=== PATIENT | male | born 1945 | race Hispanic/Latino ===

== ENCOUNTER 2020-05-29 17:07 | Emergency (ER) | payer MEDICARE ==
--- NOTE | 2020-05-29 18:13 | Event Note ---
ED Screening Note ED Screening Note: COVID + two weeks ago generalized weakness no appetite states he has lost 7 lbs no cough states has difficulty with inspiration no CP no vomiting +diarrhea PMHx undetectable HIV, afib, HLD pt is on eliquis and sotalol This initial assessment/diagnostic orders/clinical plan/treatment(s) is/are subject to change based on patients health status, clinical progression and re- assessment by fellow clinical providers in the ED. Further treatment and workup at subsequent clinical providers discretion. Patient/guardian urged not to elope from the ED as their condition may be serious if not clinically assessed and managed. Initial orders include: labs, CXR, EKG
--- NOTE | 2020-05-29 18:46 | XRay Report ---
CHEST 2 VIEWS INDICATION / CLINICAL INFORMATION: Weakness and shortness of breath. Nausea. COVID-19 positive. COMPARISON: None available. FINDINGS: SUPPORT DEVICES: None. HEART / MEDIASTINUM: The heart size and pulmonary vasculature are normal. LUNGS / PLEURA: There are [id number] patchy areas of peripheral parenchymal opacity in the righ t lung, most prominent in the mid to lower lung. There are milder patchy areas of peripheral parenchy mal opacity in the left lower lung. No pleural effusion. No pneumothorax. ADDITIONAL FINDINGS: No significant additional findings. IMPRESSION: Patchy parenchymal opacities in the periphery of both lungs, right greater than left. Aty pical causes of pneumonia, including viral pneumonia, should be considered. Signer Name: Leonid Aranda MD Signed: 05/29/2020 6:41 PM Workstation Name: [id number]
[2020-05-29 19:27] LABS: Basophils % (Auto) 0.2 % (0.0-1.8); Eosinophils % (Auto) 0.4 % (0.0-4.3); Hematocrit 50.1 % (35.5-45.6); Hemoglobin 17.3 gm/dl (11.8-15.2); Lymphocytes # (Auto) 1.1 K/mm3 (1.2-5.4); Lymphocytes % (Auto) 21.2 % (13.4-35.0); Mean Corpuscular HGB Conc 35 % (32-34); Mean Corpuscular Volume 99 fl (84-94); Monocytes # (Auto) 0.6 K/mm3 (0.0-0.8); Monocytes % (Auto) 12.8 % (0.0-7.3); Platelet Count 202 K/mm3 (140-440); Red Blood Count 5.06 M/mm3 (3.65-5.03); Red Cell Distribution Width 12.7 % (13.2-15.2)
[2020-05-29 19:32] LABS: Alanine Aminotransferase 9 units/L (7-56); Albumin 3.9 g/dL (3.9-5); BUN/Creatinine Ratio 12; Blood Urea Nitrogen 11 mg/dL (9-20); Calcium 8.6 mg/dL (8.4-10.2); Hemolysis Index 14
[2020-05-29 20:11] VITALS: BP 141/72
[2020-05-29] MEDS ORDERED: SODIUM CHLORIDE 0.9% 1000 ML 1,000 ML IV ONE ×2 (20:33)
--- NOTE | 2020-05-29 20:52 | Emergency Department Report ---
HPI - General Chief Complaint: Weakness PUI?: Yes Time Seen by Provider: 05/29/20 18:10 - HPI HPI: Room 34 The patient is a 75-year-old male present with a chief complaint of weakness. The patient states he was diagnosed with Covid approximately 2 weeks ago after developing symptoms of cough nausea vomiting diarrhea. The patient states he has been suffering from early satiety partly due to his loss of sense of taste subsequently has not been eating a lot of food. Patient states he has been trying to drink liquids. Patient denies fever pain or shortness of breath. The patient states he woke up today feeling extremely weak and called his primary physician. Primary physician advised patient to come to the ED for evaluation. The patient states today he developed a little bit of dysuria with initiation of his urinary stream. ED Past Medical Hx - Past Medical History Previous Medical History?: Yes Hx of Cancer: Yes (Prostate CA) Hx HIV: Yes (Last CD4 count 900s winter 2019) Additional medical history: Afib - Surgical History Past Surgical History?: No Additional Surgical History: knee replacement, seed implants for prostate cancer - Family History Family history: no significant - Social History Smoking Status: Former Smoker (None since 1988) Substance Use Type: None (Denies illicit drug use) - Medications Home Medications: Home Medications Medication Instructions Recorded Confirmed Last Taken Type Albuterol Mdi (or & Nicu Only) 2 puff IH QID PRN #8.5 gram 05/29/20 Unknown Rx [ProAir HFA Inhaler] Azithromycin [Zithromax Z-NATALIA] 0 mg PO DAILY #6 tab 05/29/20 Unknown Rx Ondansetron [Zofran ODT TAB] 8 mg PO Q8HR #20 tab.rapdis 05/29/20 Unknown Rx Prednisone [predniSONE 10 mg 10 mg PO .TAPER #1 tab.ds.pk 05/29/20 Unknown Rx (6-Day Pack, 21 Tabs)] ED Review of Systems ROS: Stated complaint: PCP REFERRAL Other details as noted in HPI Constitutional: malaise. denies: fever Eyes: denies: eye pain ENT: denies: throat pain Respiratory: cough. denies: shortness of breath Cardiovascular: denies: chest pain Endocrine: no symptoms reported Gastrointestinal: nausea, vomiting, diarrhea. denies: abdominal pain Genitourinary: dysuria Musculoskeletal: denies: back pain Neurological: denies: headache Physical Exam - Physical Exam Vital Signs: Vital Signs 05/29/20 05/29/20 17:10 19:57 Temperature 98.0 F 98.0 F Pulse Rate 80 74 Respiratory 18 18 Rate Blood Pressure 122/75 Blood Pressure 141/72 [Left] O2 Sat by Pulse 97 96 Oximetry Physical Exam: GENERAL: The patient is well-developed well-nourished male lying on stretcher not appearing to be in acute distress. [] HEENT: Normocephalic. Atraumatic. Extraocular motions are intact. Patient has moist mucous membranes. NECK: Supple. Trachea midline CHEST/LUNGS: Clear to auscultation. There is no respiratory distress noted. HEART/CARDIOVASCULAR: Regular. There is no tachycardia. There is no gallop rub or murmur. ABDOMEN: Abdomen is soft, nontender. Patient has normal bowel sounds. There is no abdominal distention. SKIN: There is no rash. There is no edema. There is no diaphoresis. NEURO: The patient is awake, alert, and oriented. The patient is cooperative. The patient has no focal neurologic deficits. The patient has normal speech MUSCULOSKELETAL: There is no evidence of acute injury. ED Course Vital Signs 05/29/20 05/29/20 17:10 19:57 Temperature 98.0 F 98.0 F Pulse Rate 80 74 Respiratory 18 18 Rate Blood Pressure 122/75 Blood Pressure 141/72 [Left] O2 Sat by Pulse 97 96 Oximetry ED Medical Decision Making - Lab Data Result diagrams: 05/29/20 18:33 05/29/20 18:33 Laboratory Tests 05/29/20 05/29/20 05/29/20 18:33 18:33 Unknown WBC 5.0 RBC 5.06 H Hgb 17.3 H Hct 50.1 H MCV 99 H MCH 34 H MCHC 35 H RDW 12.7 L Plt Count 202 Lymph % (Auto) 21.2 [place] % (Auto) 12.8 H Eos % (Auto) 0.4 Baso % (Auto) 0.2 Lymph # (Auto) 1.1 L [place] # (Auto) 0.6 Eos # (Auto) 0.0 Baso # (Auto) 0.0 Seg Neutrophils % 65.4 Seg Neutrophils # 3.2 Sodium 132 L Potassium 4.7 Chloride 94.3 L Carbon Dioxide 24 Anion Gap 18 BUN 11 Creatinine 0.9 Estimated GFR > 60 BUN/Creatinine Ratio 12 Glucose 102 H Calcium 8.6 Total Bilirubin 0.70 AST 14 ALT 9 Alkaline Phosphatase 85 Troponin T < 0.010 NT-Pro-B Natriuret Pep 97.47 Total Protein 6.7 Albumin 3.9 Albumin/Globulin Ratio 1.4 Urine Color Yellow Urine Turbidity Clear Urine pH 5.0 Ur Specific Arnett 1.019 Urine Protein 100 mg/dl Urine Glucose (UA) Neg Urine Ketones Neg Urine Blood Neg Urine Nitrite Neg Urine Bilirubin Neg Urine Urobilinogen < 2.0 Ur Leukocyte Esterase Neg Urine WBC (Auto) 1.0 Urine RBC (Auto) 1.0 U Epithel Cells (Auto) < 1.0 Urine Mucus Few - Radiology Data Radiology results: report reviewed (Chest x-ray), image reviewed (Chest x-ray) interpreted by me: Chest [id number] patchy infiltrates consistent with Covid pneumonia. No pneumothorax. No foreign body seen [facility] [address] [place] [address] XRay Report Signed Patient: CED SANTOYO MR#: [id number] [birth year] : 1945 Acct:[id number] Age/Sex: 75 / M ADM Date: 05/29/20 Loc: ED Attending Dr: Ordering Physician: DAMON GARCIA Date of Service: 05/29/20 Procedure(s): XR chest routine 2V Accession Number(s): [id number] cc: DAMON GARCIA Fluoro Time In Minutes: CHEST 2 VIEWS INDICATION / CLINICAL INFORMATION: Weakness and shortness of breath. Nausea. COVID-19 positive. COMPARISON: None available. FINDINGS: SUPPORT DEVICES: None. HEART / MEDIASTINUM: The heart size and pulmonary vasculature are normal. LUNGS / PLEURA: There are [id number] patchy areas of peripheral parenchymal opacity in the right lung, most prominent in the mid to lower lung. There are milder patchy areas of peripheral parenchymal opacity in the left lower lung. No pleural effusion. No pneumothorax. ADDITIONAL FINDINGS: No significant additional findings. IMPRESSION: Patchy parenchymal opacities in the periphery of both lungs, right greater than left. Atypical causes of pneumonia, including viral pneumonia, should be considered. Signer Name: Leonid Aranda MD Signed: 05/29/2020 6:41 PM Workstation Name: [id number] Transcribed By: RT Dictated By: Leonid Aranda MD Electronically Authenticated By: Leonid Aranda MD Signed Date/Time: 05/29/201840 DD/ 39 TD/TT: - Medical Decision Making 2-minute walking pulse ox never dropped below 92% on room air. - Differential Diagnosis Covid pneumonia, dehydration, fatigue, UTI Critical care attestation.: If time is entered above; I have spent that time in minutes in the direct care of this critically ill patient, excluding procedure time. ED Disposition Clinical Impression: Pneumonia due to COVID-19 virus Disposition: DC- TO HOME OR SELFCARE Is pt being admited?: No Does the pt Need Aspirin: No Condition: Stable Instructions: Bacterial Pneumonia (ED), COVID-19 Frequently Asked Questions Additional Instructions: Return to the emergency department should you develop worsening symptoms, inability to tolerate food or liquids, high fever or any other concerns Prescriptions: Prednisone [predniSONE 10 mg (6-Day Pack, 21 Tabs)] 10 mg PO .TAPER #1 tab.ds.pk Albuterol Mdi (or & Nicu Only) [ProAir HFA Inhaler] 2 puff IH QID PRN #8.5 gram PRN Reason: Shortness Of Breath Azithromycin [Zithromax Z-NATALIA] 0 mg PO DAILY #6 tab Ondansetron [Zofran ODT TAB] 8 mg PO Q8HR #20 tab.rapdis Referrals: LASHANDA CANALES [Other] - 3-5 Days Time of Disposition: 22:55
[2020-05-29 21:39] LABS: Bilirubin,Urine NEG (Negative); Blood,Urine NEG (Negative); Color,Urine Yellow (Yellow); Mucus,Urine FEW /HPF; Urobilinogen,Urine < 2.0 mg/dL (<2.0)
[2020-05-29] MEDS ORDERED: ONDANSETRON 4 MG/2 ML INJ IV ONE (21:41)
[2020-05-29] MEDS ORDERED: ETOMIDATE 20 MG/10 ML INJ IV ONE (21:43)
[2020-05-29] MEDS ORDERED: ROCURONIUM 50 MG/5 ML INJ IV ONE (21:47)
== END 2020-05-29 23:46 | disposition home or self-care (01) ==
LOC: ED 17:07
DX: U07.1 COVID-19 (principal); J12.82 Pneumonia due to coronavirus disease 2019; Z98.890 Other specified postprocedural states; Z21 Asymptomatic human immunodeficiency virus [HIV] infection status; Z87.891 Personal history of nicotine dependence; Z88.8 Allergy status to other drugs, medicaments and biological substances
CPT/HCPCS: 36415; 71046; 80053; 81001; 83880; 84484; 85025; 93005; 96361; 96374; 99284; J2405; J7030

== ENCOUNTER 2020-08-26 05:52 | Observation (INO) | payer MEDICARE ==
[2020-08-26] MEDS ORDERED: SODIUM CHLORIDE 0.9% 1000 ML 1,000 ML IV ONE ×2 (07:38→12:31)
[2020-08-26] MEDS ORDERED: ONDANSETRON 4 MG/2 ML INJ IV ONE (07:38)
[2020-08-26] MEDS ORDERED: MORPHINE 4 MG/1 ML INJ IV ONE (07:38)
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
[2020-08-26 10:07] LABS: Basophils % (Auto) 0.1 % (0.0-1.8); Eosinophils # (Auto) 0.1 K/mm3 (0.0-0.4); Eosinophils % (Auto) 0.7 % (0.0-4.3); Hematocrit 43.5 % (35.5-45.6); Lymphocytes # (Auto) 1.9 K/mm3 (1.2-5.4); Lymphocytes % (Auto) 22.2 % (13.4-35.0); Mean Corpuscular HGB Conc 34 % (32-34); Mean Corpuscular Volume 101 fl (84-94); Monocytes # (Auto) 0.7 K/mm3 (0.0-0.8); Monocytes % (Auto) 8.1 % (0.0-7.3); Platelet Count 220 K/mm3 (140-440); Red Blood Count 4.31 M/mm3 (3.65-5.03); Red Cell Distribution Width 12.9 % (13.2-15.2)
[2020-08-26 10:26] LABS: Alanine Aminotransferase 11 units/L (7-56); Albumin 3.7 g/dL (3.9-5); BUN/Creatinine Ratio 14; Blood Urea Nitrogen 11 mg/dL (9-20); Calcium 8.5 mg/dL (8.4-10.2); Hemolysis Index 1
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
[2020-08-26] MEDS ORDERED: ACETAMINOPHEN 500 MG TAB PO ONE (11:50)
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
--- NOTE | 2020-08-26 11:54 | Cat Scan Report ---
CTA CHEST WITH IV CONTRAST INDICATION: tachycardia, hx of COVID 19 infection. TECHNIQUE: Axial CT images were obtained through the chest after injection of 100 cc Omnipaque 350 IV contrast. 3 plane MIP reconstructions were produced. All CT scans at this location are performed using CT dose reduction for ALARA by means of automated exposure control. COMPARISON: None available. FINDINGS: Pulmonary Arteries: No pulmonary emboli. Lungs: There are patchy foci of groundglass opacity in both lungs, greatest in the left upper lobe Trachea and Bronchi: No significant abnormality. Heart and Pericardium: Moderately extensive coronary artherosclerotic calcifications Vasculature: No significant abnormality. Lymphatics: No lymphadenopathy. Additional Findings: None. Upper Abdomen: No acute findings. Skeletal Structures: No acute findings or aggressive bone lesions. IMPRESSION: 1. No CT evidence for pulmonary embolism. 2. Mild patchy ground glass opacities in both lungs that may indicate viral pneumonia. Signer Name: Thomas Conway MD Signed: 08/26/2020 11:50 AM Workstation Name: [id number]
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
[2020-08-26] MEDS ORDERED: dilTIAZem 25 MG/5 ML INJ IV ONE ×2 (12:32→13:20)
[2020-08-26] MEDS: METOPROLOL TARTRATE 5 MG/5 ML INJ IV SCH ×3 (14:02→14:41)
[2020-08-26] MEDS ORDERED: AMIODARONE 150 MG in DEXTROSE 5% IN WATER 97 ML IV ONE (14:51)
[2020-08-26] MEDS: AMIODARONE 900 MG in DEXTROSE 5% IN WATER 482 ML IV SCH (16:09)
[2020-08-26] MEDS ORDERED: METOCLOPRAMIDE 10 MG/2 ML INJ IV PRN (23:04)
[2020-08-26] MEDS ORDERED: ONDANSETRON 4 MG/2 ML INJ IV PRN (23:04)
[2020-08-26] MEDS ORDERED: ACETAMINOPHEN 325 MG TAB PO PRN (23:04)
[2020-08-26] MEDS ORDERED: NON-FORMULARY EACH (Apixaban 2.5 MG Tablet) PO SCH (23:15)
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
[2020-08-26] MEDS: FAMOTIDINE 20 MG/2 ML INJ IV SCH (23:36)
[2020-08-26] MEDS: HYDROmorphone 1 MG/1 ML INJ IV PRN (23:37)
[2020-08-26] MEDS ORDERED: SERTRALINE 50 MG TAB PO SCH (23:45)
[2020-08-26] MEDS ORDERED: HEPARIN 5,000 UNIT/1 ML VIAL SUB-Q SCH (23:45)
[2020-08-27] MEDS: SODIUM CHLORIDE 0.9% 1000 ML 1,000 ML IV SCH ×2 (00:38→14:17)
[2020-08-27] MEDS: dilTIAZem 60 MG TAB PO SCH ×4 (00:40→17:12)
[2020-08-27] MEDS: APIXABAN 2.5 MG TAB PO SCH ×3 (00:40→21:10)
[2020-08-27] MEDS: AMIODARONE 900 MG in DEXTROSE 5% IN WATER 482 ML IV SCH ×2 (01:05→08:59)
[2020-08-27 06:45] LABS: Basophils % (Auto) 0.5 % (0.0-1.8); Eosinophils # (Auto) 0.3 K/mm3 (0.0-0.4); Eosinophils % (Auto) 4.1 % (0.0-4.3); Hematocrit 43.3 % (35.5-45.6); Hemoglobin 14.8 gm/dl (11.8-15.2); Lymphocytes # (Auto) 1.8 K/mm3 (1.2-5.4); Lymphocytes % (Auto) 29.1 % (13.4-35.0); Mean Corpuscular HGB Conc 34 % (32-34); Mean Corpuscular Volume 102 fl (84-94); Monocytes # (Auto) 0.7 K/mm3 (0.0-0.8); Monocytes % (Auto) 10.7 % (0.0-7.3); Platelet Count 197 K/mm3 (140-440); Red Blood Count 4.22 M/mm3 (3.65-5.03); Red Cell Distribution Width 13.5 % (13.2-15.2)
[2020-08-27 07:42] LABS: Alanine Aminotransferase 7 units/L (7-56); Albumin 3.3 g/dL (3.9-5); Blood Urea Nitrogen 8 mg/dL (9-20); Calcium 7.9 mg/dL (8.4-10.2); Hemolysis Index 4
[2020-08-27 07:44] LABS: BUN/Creatinine Ratio 11
[2020-08-27] MEDS: HYDROmorphone 1 MG/1 ML INJ IV PRN ×2 (08:59→17:13)
[2020-08-27] MEDS: RITONAVIR 100 MG TAB PO SCH (09:01)
[2020-08-27] MEDS: TENOFOVIR 300 MG TAB PO SCH ×3 (09:01→09:51)
[2020-08-27] MEDS: DARUNAVIR 800 MG TAB PO SCH (09:01)
[2020-08-27] MEDS: EMTRICITABINE 200 MG CAP PO SCH ×3 (09:01→09:51)
[2020-08-27] MEDS: FAMOTIDINE 20 MG/2 ML INJ IV SCH (09:02)
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
[2020-08-27] MEDS ORDERED: NON-FORMULARY EACH (Emtricitabine/Tenofov Alafenam [Descovy 200-25 Mg Tablet] 1 EACH Table PO SCH (10:00)
[2020-08-27] MEDS: BENZONATATE 100 MG CAP PO SCH ×3 (11:18→21:10)
[2020-08-27] MEDS: CETIRIZINE 10 MG TAB PO SCH (11:19)
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
[2020-08-27] MEDS: AMIODARONE 200 MG TAB PO SCH ×2 (14:19→21:10)
[2020-08-27] MEDS: FAMOTIDINE 20 MG TAB PO SCH (21:10)
[2020-08-27] MEDS: oxyCODONE /ACETAMINOPHEN 5-325MG TAB PO PRN (21:14)
[2020-08-28] MEDS: dilTIAZem 60 MG TAB PO SCH ×4 (00:47→18:40)
[2020-08-28] MEDS: HYDROmorphone 1 MG/1 ML INJ IV PRN ×4 (04:43→15:40)
[2020-08-28] MEDS: BENZONATATE 100 MG CAP PO SCH ×2 (06:20→13:45)
[2020-08-28 07:02] LABS: BUN/Creatinine Ratio 10; Blood Urea Nitrogen 8 mg/dL (9-20); Calcium 8.1 mg/dL (8.4-10.2); Hemolysis Index 3
[2020-08-28] MEDS: FAMOTIDINE 20 MG TAB PO SCH (09:48)
[2020-08-28] MEDS: AMIODARONE 200 MG TAB PO SCH (09:48)
[2020-08-28] MEDS: RITONAVIR 100 MG TAB PO SCH (09:49)
[2020-08-28] MEDS: DARUNAVIR 800 MG TAB PO SCH (09:49)
[2020-08-28] MEDS: TENOFOVIR 300 MG TAB PO SCH (09:49)
[2020-08-28] MEDS: CETIRIZINE 10 MG TAB PO SCH (09:49)
[2020-08-28] MEDS: APIXABAN 2.5 MG TAB PO SCH (09:50)
[2020-08-28] MEDS: EMTRICITABINE 200 MG CAP PO SCH (09:50)
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
--- NOTE | 2020-08-28 11:11 | Electrocardiograph Report ---
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
[2020-08-28] MEDS: SODIUM CHLORIDE 0.9% 1000 ML 1,000 ML IV SCH (13:45)
[2020-08-28 17:32] VITALS: BP 116/67
[2020-08-28] MEDS: oxyCODONE /ACETAMINOPHEN 5-325MG TAB PO PRN (18:10)
== END 2020-08-28 19:21 | disposition home or self-care (01) ==
LOC: ED 05:52 → 4A 15:13
PROVIDERS: ADMIT Internal Medicine; ATTEND Internal Medicine
DX: S39.012A Strain of muscle, fascia and tendon of lower back, initial encounter (principal); S16.1XXA Strain of muscle, fascia and tendon at neck level, initial encounter; S09.90XA Unspecified injury of head, initial encounter; S39.91XA Unspecified injury of abdomen, initial encounter; I10 Essential (primary) hypertension; I48.20 Chronic atrial fibrillation, unspecified; I47.1 Supraventricular tachycardia; D75.89 Other specified diseases of blood and blood-forming organs; R07.89 Other chest pain; Z21 Asymptomatic human immunodeficiency virus [HIV] infection status; Z79.899 Other long term (current) drug therapy; Z96.659 Presence of unspecified artificial knee joint; V42.5XXA Car driver injured in collision with two- or three-wheeled motor vehicle in traffic accident, initial encounter; Y93.89 Activity, other specified; Y92.481 Parking lot as the place of occurrence of the external cause; Y99.8 Other external cause status
CPT/HCPCS: 36415; 70450; 71275; 72125; 72128; 72131; 74177; 80048; 80053; 82607; 82747; 83036; 83690; 84443; 84484; 85025; 93005; 93306; 96361; 96365; 96366; 96375; 96376; 99285; G0378; J0282; J1170; J2270; J2405; J7030; J7060; Q9967; 80320; G0480